=== PATIENT | male | born 1990 | race Two or more races ===

== ENCOUNTER → 2018-11-18 | Emergency (ER) | payer OTHER ==
[~2018-11-18] VITALS: Ht 180.3 cm; Wt 95.3 kg
[~2018-11-18] MED LIST: IBUPROFEN600 MG ORAL
[2018-11-18 22:35] VITALS: BP 145/90
--- NOTE | 2018-11-18 22:35 | NUR ---
ED Nurse Note: Patient walk in c/o left thumb pain. Patient states his thumb was crushed while at work by a metal lid. Patient report 7/10 pain.
--- NOTE | 2018-11-18 22:49 | NUR ---
ED Nurse Note: senior pharmacy technician on bedside.
[2018-11-18 23:16] VITALS: BP 145/90
--- NOTE | 2018-11-18 23:24 | NUR ---
ED Nurse Note: pt was cleared for discharge by anai. prescription and discharge instruction explained and pt able to verbalize understanding. id band removed. pt able to walk with steady gait. pt left the ed with all belongings.
--- NOTE | 2018-11-18 23:37 | Emergency Room Report ---
History of Present Illness General Chief Complaint: Upper Extremity Injury Source: Patient Present Illness HPI Patient is a 28-year-old male presented after increased pain to his left thumb. Patient had a injury approximate 1 hour prior to arrival. Patient was noted to have increased pain after crushing his left thumb with a metal cart at work. Patient denies any other locations of pain. He denies recent tetanus vaccine. Patient is right-hand dominant. He denies any numbness. He had not taken any pain medications. Allergies: Coded Allergies: No Known Allergies (Unverified , 11/18/18) Patient History Past Medical History: see triage record Reviewed Nursing Documentation: PMH: Agreed; PSxH: Agreed Nursing Documentation-PMH Past Medical History: No Stated History Review of Systems All Other Systems: negative except mentioned in HPI Physical Exam Vital Signs Date Time Temp Pulse Resp B/P (MAP) Pulse Ox O2 Delivery O2 Flow Rate FiO2 11/18/18 22:30 98.1 96 16 145/90 96 Room Air General Appearance: well appearing, no apparent distress, alert, GCS 15 Head: normocephalic, atraumatic ENT: hearing grossly normal, normal voice Neck: full range of motion, supple Respiratory: no respiratory distress, speaking full sentences Gastrointestinal: normal inspection, normal bowel sounds, non tender, soft Musculoskeletal: normal inspection, no calf tenderness Neurologic: normal inspection, alert, oriented x3, responsive, normal gait Psychiatric: mood/affect normal Skin: other - thumb slight bruising no laceration Medical Decision Making Diagnostic Impression: Primary Impression: Crush injury ER Course Patient presented for left thumb pain. Differential diagnosis include was not limited to fracture, subungual hematoma, crush injury among others. X-ray imaging of the left thumb 3 views interpreted by me indication pain showed normal bony alignment without any evidence of displaced fracture. Patient was placed in an aluminum splint. Patient was advised to limit use of his left hand. Patient is to return to work with modified duty. He is advised to have his thumb rechecked and 3 days. He was given ibuprofen as well as prescription for ibuprofen Last Vital Signs Date Time Temp Pulse Resp B/P (MAP) Pulse Ox O2 Delivery O2 Flow Rate FiO2 11/18/18 23:16 98.1 78 16 145/90 96 Room Air 78 Status: improved Disposition: HOME, SELF-CARE Condition: Stable Scripts Ibuprofen* (MOTRIN*) 600 Mg Tablet 600 MG ORAL Q8H PRN for For Pain, #30 TAB 0 Refills Prov: Abad Anguiano MD 11/18/18 Referrals: NOT CHOSEN IPA/,REFERRING (PCP) Patient Instructions: Crush Injury, Fingers or Toes Abad Anguiano MD Nov 18, 2018 23:37
--- NOTE | 2018-11-19 12:07 | Diagnostic Imaging Report ---
Indication: left hand pain. Findings: 3 views of the left hand were obtained. Normal alignment is demonstrated. No acute fractures, erosions, or periosteal reaction are seen. Soft tissues are unremarkable. Impression: No acute findings.
== END | disposition home or self-care (01) ==
LOC: EMR 22:51
DX: S67.02XA Crushing injury of left thumb, initial encounter (principal); S60.012A Contusion of left thumb without damage to nail, initial encounter; W23.0XXA Caught, crushed, jammed, or pinched between moving objects, initial encounter; Y92.89 Other specified places as the place of occurrence of the external cause; Y99.0 Civilian activity done for income or pay
CPT/HCPCS: 99283